=== PATIENT | male | born 1935 | race African-American/Black ===

== ENCOUNTER 2017-12-05 18:35 | Inpatient (IN) ==
[2017-12-05] MEDS ORDERED: ACETAMINOPHEN 325 MG TABLET PO PRN ×2 (22:31→22:57)
[2017-12-05] MEDS ORDERED: ONDANSETRON 4 MG/2 ML VIAL IV PRN (22:57)
[2017-12-05] MEDS ORDERED: ALBUTEROL/IPRATROPIUM 3 ML NEB RESP TX PRN (22:57)
[2017-12-05] MEDS ORDERED: SODIUM CHLORIDE 0.9% 500 ML IV ONE ×2 (22:57)
[2017-12-05] MEDS ORDERED: NOREPINEPHRINE 8 MG in SODIUM CHLORIDE 0.9% 242 ML IV SCH (22:57)
[2017-12-06] MEDS: CEFEPIME 1,000 MG in SYRINGE 1 EACH IV SCH ×4 (00:08→22:38)
[2017-12-06] MEDS: SODIUM CHLORIDE 0.9% 1,000 ML IV SCH ×2 (00:08→14:00)
[2017-12-06] MEDS: PANTOPRAZOLE 40 MG VIAL IV SCH ×2 (00:09→22:43)
[2017-12-06 01:14] LABS: INR 1.2
[2017-12-06 01:23] LABS: Eosinophils % 0.6 % (0.00-10.9); Hemoglobin 7.6 GM/DL (14.0-18.0); Immature Granulocytes % 3.2 %; Immature Granulocytes Absolute 0.05 #; Lymphocytes # 0.3 10*3/uL (1.4-4.0); Lymphocytes % 21.2 % (21.2-54.2); Mean Corpuscular HGB Conc 34.5 GM/DL (32-36); Mean Corpuscular Hemoglobin 35 PG (27-34); Mean Corpuscular Volume 101.4 FL (87-102); Monocytes # 0.5 10*3/uL (0.11-0.8); Monocytes % 30.1 % (1.7-12.7); NRBC # 0.09 10*3/uL; Neutrophils # 0.7 10*3/uL (1.4-7.4); Neutrophils % 44.9 % (38.7-73.9); Platelet Count 51 T/CUMM (130-400); Red Blood Count 2.17 MC/CUMM (3.8-5.5); Red Cell Distribution Width 17.8 % (9.3-17.3); White Blood Count 1.6 T/CUMM (4-12)
[2017-12-06 01:32] LABS: Alanine Aminotransferase 19 U/L (16-61); Albumin 1.9 G/DL (3.4-5.0); Alkaline Phosphatase 32 U/L (45-117); Aspartate Amino Transferase 35 U/L (0-37); Blood Urea Nitrogen 25 MG/DL (7-18); Glucose 97 MG/DL (74-106); Magnesium 1.1 MG/DL (1.8-2.4); Osmolality,Calculated 291.7 MOS/KG (273-304); Potassium 3.5 MMOL/L (3.5-5.1); Sodium 145 MMOL/L (136-145); Total Protein 4.7 G/DL (6.4-8.3)
[2017-12-06 01:48] LABS: Lactic Acid 3.3 MMOL/L (0.4-2.0)
[2017-12-06] MEDS: ALBUTEROL/IPRATROPIUM 3 ML NEB RESP TX SCH ×4 (02:00→19:51)
[2017-12-06 03:41] LABS: Band Neutrophils 10 % (0-10); Eosinophils 3 % (0-10); Lymphocytes 30 % (20-55); Nucleated Red Blood Cells 1 (0-5); Segmented Neutrophils 33 % (50-85); Total Cells Counted 99
[2017-12-06 03:42] LABS: Platelet Estimate Decreased; Tear Drop Cells Slight
[2017-12-06 03:44] LABS: Microcytosis 1+
[2017-12-06 07:02] LABS: Lactic Acid 3.3 MMOL/L (0.4-2.0)
[2017-12-06] MEDS ORDERED: SODIUM CHLORIDE 0.9% 1,000 ML IV PRN (08:51)
[2017-12-06] MEDS: POTASSIUM CHLORIDE 20 MEQ TABLET PO SCH (09:11)
[2017-12-06] MEDS: DOCUSATE SODIUM 100 MG CAPSULE PO SCH ×2 (09:11→21:03)
[2017-12-06] MEDS: DILTIAZEM CD 120 MG CAPSULE PO SCH (09:11)
[2017-12-06] MEDS: FILGRASTIM-SNDZ 300 MCG/0.5 ML SYRINGE SUBCUT SCH (09:12)
[2017-12-06 10:18] LABS: Lactic Acid 4.2 MMOL/L (0.4-2.0)
[2017-12-07] MEDS: ALBUTEROL/IPRATROPIUM 3 ML NEB RESP TX SCH ×4 (02:16→19:19)
[2017-12-07 05:32] LABS: Eosinophils # 0.1 10*3/uL (0.0-0.87); Hematocrit 26.3 VOL% (42.0-52.0); Hemoglobin 9.1 GM/DL (14.0-18.0); Immature Granulocytes % 0.6 %; Immature Granulocytes Absolute 0.01 #; Lymphocytes # 0.3 10*3/uL (1.4-4.0); Lymphocytes % 16.6 % (21.2-54.2); Mean Corpuscular HGB Conc 34.6 GM/DL (32-36); Mean Corpuscular Hemoglobin 33 PG (27-34); Mean Corpuscular Volume 96.3 FL (87-102); Monocytes # 0.3 10*3/uL (0.11-0.8); Monocytes % 17.7 % (1.7-12.7); NRBC # 0.03 10*3/uL; Neutrophils # 1.1 10*3/uL (1.4-7.4); Neutrophils % 60.1 % (38.7-73.9); Platelet Count 42 T/CUMM (130-400); Red Blood Count 2.73 MC/CUMM (3.8-5.5); White Blood Count 1.8 T/CUMM (4-12)
[2017-12-07 05:56] LABS: Calcium 7.2 MG/DL (8.5-10.1); Potassium 3.3 MMOL/L (3.5-5.1)
[2017-12-07 06:12] LABS: Anisocytosis 1+; Band Neutrophils 3 % (0-10); Eosinophils 2 % (0-10); Hypochromasia 1+; Lymphocytes 18 % (20-55); Microcytosis 1+; Myelocytes 1 %; Nucleated Red Blood Cells 4 (0-5); Segmented Neutrophils 58 % (50-85); Total Cells Counted 100
[2017-12-07 06:13] LABS: Ovalocytes Slight; Platelet Estimate Decreased; Tear Drop Cells Slight
[2017-12-07] MEDS: CEFEPIME 1,000 MG in SYRINGE 1 EACH IV SCH ×2 (06:29→18:13)
[2017-12-07] MEDS: SODIUM CHLORIDE 0.9% 1,000 ML IV SCH (09:09)
[2017-12-07] MEDS: DILTIAZEM CD 120 MG CAPSULE PO SCH (09:48)
[2017-12-07] MEDS: DOCUSATE SODIUM 100 MG CAPSULE PO SCH ×2 (09:48→22:11)
[2017-12-07] MEDS: POTASSIUM CHLORIDE 20 MEQ TABLET PO SCH (09:49)
[2017-12-07] MEDS: FILGRASTIM-SNDZ 300 MCG/0.5 ML SYRINGE SUBCUT SCH (09:50)
[2017-12-07] MEDS ORDERED: POTASSIUM CHLORIDE 20 MEQ TABLET PO PRN (14:29)
[2017-12-07] MEDS ORDERED: MAGNESIUM SULF RIDER 4 GM in PREMIX 1 EACH IV ONE (14:43)
[2017-12-07 17:16] LABS: Apearance,Urine CLEAR (Clear); Bacteria,Urine Occasional /HPF (Few); Bilirubin,Urine Negative (Negative); Blood, Urine Moderate mg/dL (Negative); Glucose,Urine (UA) Negative (Negative); Ketones,Urine Negative (Negative); Mucus,Urine Occasional /LPF (Occasional); Nitrite,Urine Negative (Negative); Protein,Urine Negative; RBC,Urine 64 /HPF (0-4); Squamous Epithelial Cell,Urine Occasional /HPF (0-10); Urine Color Yellow (Yellow); Urine Specific Gravity 1.009 (1.001-1.035); Urine Urobilinogen < 2.0 EU/DL (0.2-1.0); WBC,Urine 3 /HPF (0-6)
[2017-12-07] MEDS: PANTOPRAZOLE 40 MG VIAL IV SCH (22:12)
[2017-12-08] MEDS: ALBUTEROL/IPRATROPIUM 3 ML NEB RESP TX SCH ×4 (01:20→19:20)
[2017-12-08] MEDS: CEFEPIME 1,000 MG in SYRINGE 1 EACH IV SCH ×3 (02:58→22:18)
[2017-12-08] MEDS: SODIUM CHLORIDE 0.9% 1,000 ML IV SCH ×2 (02:58→16:00)
[2017-12-08 03:14] LABS: Basophils % 0.5 % (0.0-0.8); Eosinophils # 0.2 10*3/uL (0.0-0.87); Eosinophils % 7.7 % (0.00-10.9); Hematocrit 28.6 VOL% (42.0-52.0); Hemoglobin 9.7 GM/DL (14.0-18.0); Immature Granulocytes % 10.6 %; Immature Granulocytes Absolute 0.22 #; Lymphocytes # 0.4 10*3/uL (1.4-4.0); Lymphocytes % 18.8 % (21.2-54.2); Mean Corpuscular HGB Conc 33.9 GM/DL (32-36); Mean Corpuscular Hemoglobin 33 PG (27-34); Mean Corpuscular Volume 97.6 FL (87-102); Monocytes # 0.3 10*3/uL (0.11-0.8); NRBC # 0.04 10*3/uL; Neutrophils % 49.4 % (38.7-73.9); Red Blood Count 2.93 MC/CUMM (3.8-5.5); Red Cell Distribution Width 18.8 % (9.3-17.3); White Blood Count 2.1 T/CUMM (4-12)
[2017-12-08 03:22] LABS: Platelet Count 36 T/CUMM (130-400)
[2017-12-08 03:38] LABS: Albumin 1.8 G/DL (3.4-5.0); Calcium 7.1 MG/DL (8.5-10.1); Magnesium 2.4 MG/DL (1.8-2.4); Osmolality,Calculated 287.8 MOS/KG (273-304); Potassium 3.5 MMOL/L (3.5-5.1)
[2017-12-08 05:05] LABS: Eosinophils 2 % (0-10); Lymphocytes 20 % (20-55); Metamyelocytes 2 %; Myelocytes 4 %; Nucleated Red Blood Cells 1 (0-5); Segmented Neutrophils 62 % (50-85)
[2017-12-08 05:08] LABS: Ovalocytes 1+; Platelet Estimate Decreased; Total Cells Counted 100
[2017-12-08] MEDS: DOCUSATE SODIUM 100 MG CAPSULE PO SCH ×2 (09:44→22:20)
[2017-12-08] MEDS: DILTIAZEM CD 120 MG CAPSULE PO SCH (09:44)
[2017-12-08] MEDS: POTASSIUM CHLORIDE 20 MEQ TABLET PO SCH (09:45)
[2017-12-08] MEDS: FILGRASTIM-SNDZ 300 MCG/0.5 ML SYRINGE SUBCUT SCH (09:45)
[2017-12-08] MEDS ORDERED: SODIUM PHOSPHATE INJ 15 MMOL in SODIUM CHLORIDE 0.9% 250 ML IV ONE (13:49)
[2017-12-08] MEDS: PANTOPRAZOLE 40 MG VIAL IV SCH (22:47)
[2017-12-09] MEDS: ALBUTEROL/IPRATROPIUM 3 ML NEB RESP TX SCH ×4 (00:26→20:46)
[2017-12-09] MEDS: traZODone 50 MG TABLET PO PRN ×2 (01:53→21:35)
[2017-12-09] MEDS: CEFEPIME 1,000 MG in SYRINGE 1 EACH IV SCH ×3 (02:06→18:30)
[2017-12-09] MEDS: DOCUSATE SODIUM 100 MG CAPSULE PO SCH ×2 (09:26→21:35)
[2017-12-09] MEDS: DILTIAZEM CD 120 MG CAPSULE PO SCH (09:26)
[2017-12-09] MEDS: FILGRASTIM-SNDZ 300 MCG/0.5 ML SYRINGE SUBCUT SCH (09:27)
[2017-12-09] MEDS: POTASSIUM CHLORIDE 20 MEQ TABLET PO SCH (09:27)
[2017-12-09] MEDS: SODIUM CHLORIDE 0.9% 1,000 ML IV SCH ×2 (09:29→23:01)
[2017-12-09] MEDS: PANTOPRAZOLE 40 MG VIAL IV SCH (22:04)
[2017-12-10] MEDS: ALBUTEROL/IPRATROPIUM 3 ML NEB RESP TX SCH ×2 (00:25→08:07)
[2017-12-10] MEDS: CEFEPIME 1,000 MG in SYRINGE 1 EACH IV SCH ×2 (03:18→10:33)
[2017-12-10 09:36] LABS: Basophils % 0.6 % (0.0-0.8); Eosinophils # 0.2 10*3/uL (0.0-0.87); Eosinophils % 5.8 % (0.00-10.9); Hematocrit 29.1 VOL% (42.0-52.0); Hemoglobin 9.7 GM/DL (14.0-18.0); Immature Granulocytes % 7.7 %; Immature Granulocytes Absolute 0.25 #; Lymphocytes # 0.7 10*3/uL (1.4-4.0); Lymphocytes % 20.2 % (21.2-54.2); Mean Corpuscular HGB Conc 33.3 GM/DL (32-36); Mean Corpuscular Hemoglobin 33 PG (27-34); Mean Corpuscular Volume 99.3 FL (87-102); Monocytes # 0.5 10*3/uL (0.11-0.8); Neutrophils # 1.7 10*3/uL (1.4-7.4); Neutrophils % 50.7 % (38.7-73.9); Platelet Count 49 T/CUMM (130-400); Red Blood Count 2.93 MC/CUMM (3.8-5.5); Red Cell Distribution Width 18.6 % (9.3-17.3); White Blood Count 3.3 T/CUMM (4-12)
[2017-12-10 09:53] VITALS: BP 136/81
[2017-12-10 10:04] LABS: Band Neutrophils 6 % (0-10); Eosinophils 6 % (0-10); Giant Platelets Few; Hypochromasia 1+; Lymphocytes 22 % (20-55); Microcytosis Slight; Ovalocytes Slight; Platelet Estimate Decreased; Segmented Neutrophils 44 % (50-85); Total Cells Counted 100
[2017-12-10] MEDS: SODIUM CHLORIDE 0.9% 1,000 ML IV SCH (10:31)
[2017-12-10] MEDS: FILGRASTIM-SNDZ 300 MCG/0.5 ML SYRINGE SUBCUT SCH (10:33)
[2017-12-10] MEDS: DILTIAZEM CD 120 MG CAPSULE PO SCH (10:33)
[2017-12-10] MEDS: POTASSIUM CHLORIDE 20 MEQ TABLET PO SCH (10:34)
[2017-12-10] MEDS: DOCUSATE SODIUM 100 MG CAPSULE PO SCH (11:18)
== END 2017-12-10 13:50 | disposition swing bed (61) | DRG 871 ==
LOC: SUATTDRO 21:22 → N.CC 21:22 → N.4E 12-06 10:23
PROVIDERS: ADMIT Internal Medicine; ATTEND Pediatrics

== ENCOUNTER 2018-05-31 18:20 | Inpatient (IN) ==
[2018-06-01] MEDS ORDERED: DILTIAZEM 50 MG/10 ML VIAL IV ONE (03:17)
[2018-06-01] MEDS ORDERED: DILTIAZEM 25 MG/5 ML VIAL IV ONE (03:19)
[2018-06-01 04:44] LABS: Basophils % 0.2 % (0.0-0.8); Eosinophils % 0.3 % (0.00-10.9); Hemoglobin 10.6 GM/DL (14.0-18.0); Immature Granulocytes % 5.5 %; Immature Granulocytes Absolute 0.32 #; Lymphocytes # 0.9 10*3/uL (1.4-4.0); Lymphocytes % 15.9 % (21.2-54.2); Mean Corpuscular HGB Conc 32.1 GM/DL (32-36); Mean Corpuscular Hemoglobin 30 PG (27-34); Monocytes # 0.1 10*3/uL (0.11-0.8); Monocytes % 2.4 % (1.7-12.7); NRBC # 0.07 10*3/uL; Neutrophils # 4.4 10*3/uL (1.4-7.4); Neutrophils % 75.7 % (38.7-73.9); Platelet Count 84 T/CUMM (130-400); Red Blood Count 3.51 MC/CUMM (3.8-5.5); Red Cell Distribution Width 19.2 % (9.3-17.3); White Blood Count 5.8 T/CUMM (4-12)
[2018-06-01 04:47] LABS: INR 1.1; PT Patient Result 11.6 SECS
[2018-06-01 05:01] LABS: Amorphous Crystals,Urine Occasional /HPF (Few); Apearance,Urine CLOUDY (Clear); Bacteria,Urine Few /HPF (Few); Bilirubin,Urine Negative (Negative); Blood, Urine Moderate mg/dL (Negative); Glucose,Urine (UA) Negative (Negative); Ketones,Urine Negative (Negative); Mucus,Urine Occasional /LPF (Occasional); Nitrite,Urine Positive (Negative); Protein,Urine Negative; RBC,Urine 2 /HPF (0-4); Squamous Epithelial Cell,Urine Occasional /HPF (0-10); Urine Color Yellow (Yellow); Urine Specific Gravity 1.009 (1.001-1.035); Urine Urobilinogen < 2.0 EU/DL (0.2-1.0); WBC,Urine 76 /HPF (0-6)
[2018-06-01 05:08] LABS: Calcium 8.2 MG/DL (8.5-10.1); Osmolality,Calculated 275.7 MOS/KG (273-304)
[2018-06-01 05:11] LABS: Band Neutrophils 1 % (0-10); Lymphocytes 22 % (20-55); Macrocytosis 2+; Nucleated Red Blood Cells 2 (0-5); Platelet Estimate Decreased; Segmented Neutrophils 74 % (50-85); Total Cells Counted 100
[2018-06-01] MEDS ORDERED: DILTIAZEM INJ 100 MG in SODIUM CHLORIDE 0.9% 100 ML IV SCH (07:30)
[2018-06-01] MEDS ORDERED: SODIUM CHLORIDE 0.9% 1,000 ML IV SCH (08:00)
[2018-06-01] MEDS: DILTIAZEM CD 120 MG CAPSULE PO SCH (12:34)
[2018-06-01] MEDS: ASCORBIC ACID 500 MG TABLET PO SCH ×2 (12:36→20:59)
[2018-06-01] MEDS: APIXABAN 5 MG TABLET PO SCH (21:00)
[2018-06-01] MEDS: cefTRIAXone 2,000 MG in SYRINGE 1 EACH IV SCH (21:00)
[2018-06-02] MEDS: DILTIAZEM CD 120 MG CAPSULE PO SCH (08:40)
[2018-06-02] MEDS: ASCORBIC ACID 500 MG TABLET PO SCH ×2 (08:41→20:36)
[2018-06-02] MEDS: APIXABAN 5 MG TABLET PO SCH ×2 (08:41→20:36)
[2018-06-02] MEDS: ALUMINUM/MAGNES/SIMETH MAX STR 30 ML UDCUP PO PRN (18:23)
[2018-06-02] MEDS: cefTRIAXone 2,000 MG in SYRINGE 1 EACH IV SCH (20:36)
[2018-06-03 05:29] LABS: Basophils % 0.2 % (0.0-0.8); Eosinophils % 0.2 % (0.00-10.9); Hematocrit 30.7 VOL% (42.0-52.0); Hemoglobin 10.3 GM/DL (14.0-18.0); Immature Granulocytes % 1.9 %; Immature Granulocytes Absolute 0.17 #; Lymphocytes # 0.7 10*3/uL (1.4-4.0); Lymphocytes % 7.7 % (21.2-54.2); Mean Corpuscular HGB Conc 33.6 GM/DL (32-36); Mean Corpuscular Hemoglobin 30 PG (27-34); Mean Corpuscular Volume 90.6 FL (87-102); Monocytes # 0.3 10*3/uL (0.11-0.8); Monocytes % 2.9 % (1.7-12.7); Neutrophils # 7.7 10*3/uL (1.4-7.4); Neutrophils % 87.1 % (38.7-73.9); Platelet Count 119 T/CUMM (130-400); Red Blood Count 3.39 MC/CUMM (3.8-5.5); Red Cell Distribution Width 19.5 % (9.3-17.3); White Blood Count 8.8 T/CUMM (4-12)
[2018-06-03 05:37] LABS: INR 1.1; PT Patient Result 11.9 SECS
[2018-06-03 05:51] LABS: Albumin 1.9 G/DL (3.4-5.0); Bilirubin,Total 0.9 MG/DL (0.2-1.0); Calcium 8.2 MG/DL (8.5-10.1); Osmolality,Calculated 282.7 MOS/KG (273-304); Potassium 3.6 MMOL/L (3.5-5.1); Total Protein 5.7 G/DL (6.4-8.3)
[2018-06-03 05:55] LABS: Platelet Estimate Adequate
[2018-06-03 05:56] LABS: Anisocytosis 1+; Poikilocytosis 1+
[2018-06-03] MEDS: APIXABAN 5 MG TABLET PO SCH ×2 (08:58→22:34)
[2018-06-03] MEDS: POTASSIUM CHLORIDE 20 MEQ TABLET PO SCH (08:58)
[2018-06-03] MEDS: ASCORBIC ACID 500 MG TABLET PO SCH ×2 (08:58→22:34)
[2018-06-03] MEDS: DILTIAZEM CD 120 MG CAPSULE PO SCH (08:59)
[2018-06-03] MEDS ORDERED: DILTIAZEM CD 120 MG CAPSULE PO ONE (10:17)
[2018-06-03] MEDS: DILTIAZEM INJ 100 MG in SODIUM CHLORIDE 0.9% 100 ML IV SCH (13:07)
[2018-06-04] MEDS: ERTAPENEM 1,000 MG in SODIUM CHLORIDE 0.9% 100 ML IV SCH ×2 (01:12→11:30)
[2018-06-04] MEDS: DILTIAZEM INJ 100 MG in SODIUM CHLORIDE 0.9% 100 ML IV SCH ×2 (01:23→02:12)
[2018-06-04] MEDS ORDERED: AMIODARONE INJ 150 MG in DEXTROSE 5% 100 ML IV ONE (08:07)
[2018-06-04] MEDS ORDERED: AMIODARONE INJ 450 MG in DEXTROSE 5% 241 ML IV SCH (08:30)
[2018-06-04] MEDS ORDERED: DILTIAZEM CD 240 MG CAPSULE PO SCH (09:00)
[2018-06-04] MEDS: APIXABAN 5 MG TABLET PO SCH ×2 (09:48→09:49)
[2018-06-04] MEDS: ASCORBIC ACID 500 MG TABLET PO SCH ×2 (09:48→21:56)
[2018-06-04] MEDS: POTASSIUM CHLORIDE 20 MEQ TABLET PO SCH (09:48)
[2018-06-04] MEDS ORDERED: fentaNYL 12 MCG/HR PATCH TRANSDERM SCH (16:30)
[2018-06-04] MEDS: AMIODARONE INJ 450 MG in DEXTROSE 5% 241 ML IV SCH (17:48)
[2018-06-05 05:52] LABS: Basophils % 0.2 % (0.0-0.8); Eosinophils # 0.1 10*3/uL (0.0-0.87); Eosinophils % 0.7 % (0.00-10.9); Hematocrit 26.4 VOL% (42.0-52.0); Hemoglobin 8.7 GM/DL (14.0-18.0); Immature Granulocytes % 2.3 %; Immature Granulocytes Absolute 0.19 #; Lymphocytes # 0.6 10*3/uL (1.4-4.0); Lymphocytes % 6.7 % (21.2-54.2); Mean Corpuscular Hemoglobin 30 PG (27-34); Mean Platelet Volume 12.3 FL (9.6-12.0); Monocytes # 0.3 10*3/uL (0.11-0.8); Monocytes % 3.3 % (1.7-12.7); NRBC # 0.05 10*3/uL; Neutrophils # 7.1 10*3/uL (1.4-7.4); Neutrophils % 86.8 % (38.7-73.9); Platelet Count 136 T/CUMM (130-400); Red Cell Distribution Width 19.9 % (9.3-17.3); White Blood Count 8.2 T/CUMM (4-12)
[2018-06-05 06:11] LABS: Calcium 7.8 MG/DL (8.5-10.1); Osmolality,Calculated 282.7 MOS/KG (273-304); Potassium 4.3 MMOL/L (3.5-5.1)
[2018-06-05 06:15] LABS: Band Neutrophils 3 % (0-10); Eosinophils 1 % (0-10); Hypochromasia 1+; Lymphocytes 4 % (20-55); Nucleated Red Blood Cells 1 (0-5); Segmented Neutrophils 89 % (50-85); Total Cells Counted 100
[2018-06-05 06:16] LABS: Microcytosis 1+; Ovalocytes Few; Polychromasia Slight; Tear Drop Cells Slight
[2018-06-05] MEDS: ASCORBIC ACID 500 MG TABLET PO SCH ×2 (08:21→21:11)
[2018-06-05] MEDS: APIXABAN 5 MG TABLET PO SCH (08:21)
[2018-06-05] MEDS: ERTAPENEM 1,000 MG in SODIUM CHLORIDE 0.9% 100 ML IV SCH (08:21)
[2018-06-05] MEDS: POTASSIUM CHLORIDE 20 MEQ TABLET PO SCH (08:21)
[2018-06-05] MEDS: AMIODARONE INJ 450 MG in DEXTROSE 5% 241 ML IV SCH (09:34)
[2018-06-05] MEDS ORDERED: FUROSEMIDE 40 MG/4 ML VIAL IV ONE (11:19)
[2018-06-05] MEDS: DEXTROSE 5% NACL 0.45% 1,000 ML IV SCH (11:36)
[2018-06-05] MEDS: AMIODARONE 200 MG TABLET PO SCH ×2 (11:36→21:12)
[2018-06-05 17:12] LABS: ABG Base Excess -1.4 MMOL/L (-2.5-2.5); ABG HCO3 20.4 MMOL/L (20-26); ABG Oxygen Saturation 86.6 % (95-100); ABG PCO2 25.3 MM HG (35-48); ABG PH 7.525 (7.35-7.45); ABG PO2 57.2 MM HG (80-95); ABG TCO2 21.2 MMOL/L (23-27)
[2018-06-05] MEDS: ALBUTEROL/IPRATROPIUM 3 ML NEB RESP TX SCH (20:38)
[2018-06-05] MEDS: MEROPENEM 1,000 MG in SYRINGE 1 EACH IV SCH (21:11)
[2018-06-05] MEDS: CLINDAMYCIN INJ 600 MG in PREMIX 1 EACH IV SCH (21:12)
[2018-06-06] MEDS: ALBUTEROL/IPRATROPIUM 3 ML NEB RESP TX SCH ×4 (00:47→19:10)
[2018-06-06] MEDS: CLINDAMYCIN INJ 600 MG in PREMIX 1 EACH IV SCH ×2 (04:01→11:49)
[2018-06-06 05:54] LABS: Basophils % 0.3 % (0.0-0.8); Eosinophils % 0.6 % (0.00-10.9); Hematocrit 25.7 VOL% (42.0-52.0); Hemoglobin 8.2 GM/DL (14.0-18.0); Immature Granulocytes % 6.7 %; Immature Granulocytes Absolute 0.44 #; Lymphocytes # 0.7 10*3/uL (1.4-4.0); Lymphocytes % 10.3 % (21.2-54.2); Mean Corpuscular HGB Conc 31.9 GM/DL (32-36); Mean Corpuscular Hemoglobin 30 PG (27-34); Mean Corpuscular Volume 93.8 FL (87-102); Mean Platelet Volume 12.6 FL (9.6-12.0); Monocytes # 0.3 10*3/uL (0.11-0.8); Monocytes % 3.8 % (1.7-12.7); Neutrophils # 5.2 10*3/uL (1.4-7.4); Neutrophils % 78.3 % (38.7-73.9); Platelet Count 163 T/CUMM (130-400); Red Blood Count 2.74 MC/CUMM (3.8-5.5); Red Cell Distribution Width 20.4 % (9.3-17.3); White Blood Count 6.6 T/CUMM (4-12)
[2018-06-06 06:10] LABS: Calcium 7.6 MG/DL (8.5-10.1); Potassium 4.4 MMOL/L (3.5-5.1)
[2018-06-06 06:20] LABS: Band Neutrophils 3 % (0-10); Eosinophils 1 % (0-10); Hypochromasia 1+; Lymphocytes 14 % (20-55); Microcytosis 1+; Nucleated Red Blood Cells 3 (0-5); Ovalocytes Slight; Platelet Estimate Normal; Segmented Neutrophils 77 % (50-85); Total Cells Counted 100
[2018-06-06] MEDS: AMIODARONE 200 MG TABLET PO SCH ×2 (08:29→21:17)
[2018-06-06] MEDS: POTASSIUM CHLORIDE 20 MEQ TABLET PO SCH (08:29)
[2018-06-06] MEDS: MEROPENEM 1,000 MG in SYRINGE 1 EACH IV SCH ×2 (08:29→21:17)
[2018-06-06] MEDS: ASCORBIC ACID 500 MG TABLET PO SCH ×2 (08:29→21:17)
[2018-06-06] MEDS: DORNASE ALFA 2.5 MG/2.5 ML VIAL RESP TX SCH ×2 (09:05→19:15)
[2018-06-06] MEDS ORDERED: ALBUTEROL/IPRATROPIUM 3 ML NEB RESP TX PRN (10:25)
[2018-06-06] MEDS: MONTELUKAST 10 MG TABLET PO SCH (11:47)
[2018-06-06 12:31] LABS: ABG Base Excess -3.3 MMOL/L (-2.5-2.5); ABG HCO3 21.5 MMOL/L (20-26); ABG Oxygen Saturation 86.2 % (95-100); ABG PCO2 25.3 MM HG (35-48); ABG PH 7.489 (7.35-7.45); ABG PO2 53.6 MM HG (80-95); ABG TCO2 17.9 MMOL/L (23-27)
[2018-06-06 15:12] LABS: ABG Base Excess -8.2 MMOL/L (-2.5-2.5); ABG HCO3 17.7 MMOL/L (20-26); ABG Oxygen Saturation 89.7 % (95-100); ABG PCO2 22.3 MM HG (35-48); ABG PH 7.431 (7.35-7.45); ABG TCO2 13.6 MMOL/L (23-27); Allen Test Positive
[2018-06-06 16:03] LABS: Apearance,Urine CLEAR (Clear); Bacteria,Urine Occasional /HPF (Few); Bilirubin,Urine Negative (Negative); Blood, Urine Negative (Negative); Glucose,Urine (UA) Negative (Negative); Hyaline Casts,Urine 1 /LPF (0-3); Ketones,Urine 5 mg/dL (Negative); Mucus,Urine Occasional /LPF (Occasional); Nitrite,Urine Negative (Negative); Protein,Urine Negative; RBC,Urine <1 /HPF (0-4); Squamous Epithelial Cell,Urine Occasional /HPF (0-10); Urine Color Yellow (Yellow); Urine Specific Gravity 1.016 (1.001-1.035); Urine Urobilinogen < 2.0 EU/DL (0.2-1.0); WBC,Urine 6 /HPF (0-6)
[2018-06-07] MEDS: DEXTROSE 5% NACL 0.45% 1,000 ML IV SCH ×4 (02:01→19:26)
[2018-06-07] MEDS: ALBUTEROL/IPRATROPIUM 3 ML NEB RESP TX SCH ×4 (02:04→19:18)
[2018-06-07 04:16] LABS: ABG Base Excess -2.8 MMOL/L (-2.5-2.5); ABG HCO3 22.1 MMOL/L (20-26); ABG Oxygen Saturation 96.6 % (95-100); ABG PCO2 26.8 MM HG (35-48); ABG PO2 83.6 MM HG (80-95); ABG TCO2 18.6 MMOL/L (23-27); Pt O2 Delivery Device Other
[2018-06-07 04:29] LABS: Basophils % 0.1 % (0.0-0.8); Eosinophils # 0.1 10*3/uL (0.0-0.87); Hematocrit 24.3 VOL% (42.0-52.0); Hemoglobin 7.8 GM/DL (14.0-18.0); Immature Granulocytes % 6.8 %; Immature Granulocytes Absolute 0.49 #; Lymphocytes # 0.5 10*3/uL (1.4-4.0); Lymphocytes % 7.3 % (21.2-54.2); Mean Corpuscular HGB Conc 32.1 GM/DL (32-36); Mean Corpuscular Hemoglobin 30 PG (27-34); Mean Corpuscular Volume 93.1 FL (87-102); Mean Platelet Volume 13.5 FL (9.6-12.0); Monocytes # 0.1 10*3/uL (0.11-0.8); Monocytes % 1.7 % (1.7-12.7); NRBC # 0.08 10*3/uL; Neutrophils % 83.1 % (38.7-73.9); Platelet Count 163 T/CUMM (130-400); Red Blood Count 2.61 MC/CUMM (3.8-5.5); Red Cell Distribution Width 20.8 % (9.3-17.3); White Blood Count 7.2 T/CUMM (4-12)
[2018-06-07 04:37] LABS: Calcium 7.6 MG/DL (8.5-10.1); Osmolality,Calculated 283.8 MOS/KG (273-304); Potassium 4.4 MMOL/L (3.5-5.1)
[2018-06-07 04:42] LABS: PT Patient Result 10.8 SECS; Partial Thromboplastin Time 39.2 SECS (0-40)
[2018-06-07 05:45] LABS: Band Neutrophils 7 % (0-10); Lymphocytes 9 % (20-55); Platelet Estimate Normal; Segmented Neutrophils 82 % (50-85); Total Cells Counted 100
[2018-06-07] MEDS: DORNASE ALFA 2.5 MG/2.5 ML VIAL RESP TX SCH ×2 (07:32→19:18)
[2018-06-07] MEDS: AMIODARONE 200 MG TABLET PO SCH ×2 (08:20→21:41)
[2018-06-07] MEDS: MEROPENEM 1,000 MG in SYRINGE 1 EACH IV SCH ×2 (08:28→21:41)
[2018-06-07] MEDS ORDERED: LIDOCAINE 1% 20 ML VIAL MISC INJ ONE (09:00)
[2018-06-07] MEDS ORDERED: APIXABAN 5 MG TABLET PO SCH (09:00)
[2018-06-07] MEDS ORDERED: LIDOCAINE 2% VISCOUS 100 ML BOTTLE SWISH/SPIT ONE (09:00)
[2018-06-07] MEDS ORDERED: LIDOCAINE 2% 20 ML VIAL RESP TX ONE (09:00)
[2018-06-07] MEDS ORDERED: SODIUM CHLORIDE 0.9% 1,000 ML IV PRN (09:33)
[2018-06-07] MEDS ORDERED: DIGOXIN 0.5 MG/2 ML AMP IV ONE (10:31)
[2018-06-07] MEDS ORDERED: SKIN HEALING OINT (AQUAPHOR) 50 GM TUBE TOP PRN (10:35)
[2018-06-07] MEDS ORDERED: traZODone 50 MG TABLET PO PRN (12:27)
[2018-06-07] MEDS: MONTELUKAST 10 MG TABLET PO SCH (16:46)
[2018-06-07] MEDS: ASCORBIC ACID 500 MG TABLET PO SCH ×2 (16:46→21:41)
[2018-06-07] MEDS ORDERED: SODIUM CHLORIDE 0.9% 500 ML IV ONE (16:52)
[2018-06-07] MEDS ORDERED: DILTIAZEM 60 MG TABLET PO ONE (17:02)
[2018-06-07] MEDS: DILTIAZEM CD 120 MG CAPSULE PO SCH (17:37)
[2018-06-07] MEDS: POTASSIUM CHLORIDE 20 MEQ TABLET PO SCH (17:37)
[2018-06-07] MEDS ORDERED: DOCUSATE SODIUM 100 MG CAPSULE PO SCH (21:00)
[2018-06-07] MEDS: ACYCLOVIR 200 MG CAPSULE PO SCH (21:41)
[2018-06-08] MEDS: ALBUTEROL/IPRATROPIUM 3 ML NEB RESP TX SCH ×4 (00:55→18:58)
[2018-06-08 03:25] LABS: ABG Base Excess -3.2 MMOL/L (-2.5-2.5); ABG HCO3 21.7 MMOL/L (20-26); ABG Oxygen Saturation 95.8 % (95-100); ABG PCO2 27.7 MM HG (35-48); ABG PH 7.464 (7.35-7.45); ABG PO2 80.3 MM HG (80-95); ABG TCO2 18.7 MMOL/L (23-27); Allen Test Positive
[2018-06-08 03:39] LABS: Basophils % 0.1 % (0.0-0.8); Eosinophils # 0.1 10*3/uL (0.0-0.87); Eosinophils % 0.9 % (0.00-10.9); Hematocrit 24.8 VOL% (42.0-52.0); Hemoglobin 7.6 GM/DL (14.0-18.0); Immature Granulocytes % 7.8 %; Immature Granulocytes Absolute 0.54 #; Lymphocytes # 0.3 10*3/uL (1.4-4.0); Mean Corpuscular HGB Conc 30.6 GM/DL (32-36); Mean Corpuscular Hemoglobin 30 PG (27-34); Mean Corpuscular Volume 96.9 FL (87-102); Mean Platelet Volume 13.1 FL (9.6-12.0); Monocytes # 0.2 10*3/uL (0.11-0.8); Monocytes % 2.6 % (1.7-12.7); NRBC # 0.19 10*3/uL; Neutrophils # 5.9 10*3/uL (1.4-7.4); Neutrophils % 84.6 % (38.7-73.9); Platelet Count 152 T/CUMM (130-400); Red Blood Count 2.56 MC/CUMM (3.8-5.5); Red Cell Distribution Width 21.3 % (9.3-17.3)
[2018-06-08 04:23] LABS: Calcium 6.8 MG/DL (8.5-10.1); Osmolality,Calculated 280.8 MOS/KG (273-304); Potassium 4.3 MMOL/L (3.5-5.1)
[2018-06-08 05:05] LABS: Anisocytosis 2+; Band Neutrophils 28 % (0-10); Eosinophils 1 % (0-10); Lymphocytes 3 % (20-55); Nucleated Red Blood Cells 3 (0-5); Poikilocytosis 2+; Polychromasia 1+; Segmented Neutrophils 62 % (50-85); Total Cells Counted 100
[2018-06-08 05:06] LABS: Acanthocytes 1+
[2018-06-08] MEDS: DEXTROSE 5% NACL 0.45% 1,000 ML IV SCH ×2 (05:09→15:02)
[2018-06-08] MEDS: DORNASE ALFA 2.5 MG/2.5 ML VIAL RESP TX SCH ×2 (07:49→19:07)
[2018-06-08] MEDS: AMIODARONE 200 MG TABLET PO SCH ×2 (09:48→20:58)
[2018-06-08] MEDS: DILTIAZEM CD 120 MG CAPSULE PO SCH (09:54)
[2018-06-08] MEDS: MAGNESIUM OXIDE 400 MG TABLET PO SCH (10:01)
[2018-06-08] MEDS: MEROPENEM 1,000 MG in SYRINGE 1 EACH IV SCH ×2 (10:24→20:52)
[2018-06-08] MEDS: ACYCLOVIR 200 MG CAPSULE PO SCH ×2 (10:24→21:00)
[2018-06-08] MEDS: MONTELUKAST 10 MG TABLET PO SCH (10:31)
[2018-06-08] MEDS: POTASSIUM CHLORIDE 20 MEQ TABLET PO SCH (10:37)
[2018-06-08] MEDS: CLINDAMYCIN INJ 600 MG in PREMIX 1 EACH IV SCH ×2 (13:00→20:57)
[2018-06-08] MEDS: ASCORBIC ACID 500 MG TABLET PO SCH ×2 (15:02→21:01)
[2018-06-08] MEDS: ALUMINUM/MAGNES/SIMETH MAX STR 30 ML UDCUP PO PRN (17:08)
[2018-06-09 00:30] LABS: Hematocrit 31.7 VOL% (42.0-52.0)
[2018-06-09] MEDS: ALBUTEROL/IPRATROPIUM 3 ML NEB RESP TX SCH ×4 (00:36→19:14)
[2018-06-09 03:35] LABS: ABG Base Excess -3.2 MMOL/L (-2.5-2.5); ABG HCO3 19.1 MMOL/L (20-26); ABG Oxygen Saturation 96.8 % (95-100); ABG PCO2 25.8 MM HG (35-48); ABG PH 7.487 (7.35-7.45); ABG PO2 93.9 MM HG (80-95); ABG TCO2 19.9 MMOL/L (23-27)
[2018-06-09 04:04] LABS: Basophils % 0.3 % (0.0-0.8); Eosinophils % 0.5 % (0.00-10.9); Hematocrit 31.3 VOL% (42.0-52.0); Hemoglobin 10.2 GM/DL (14.0-18.0); Immature Granulocytes % 6.1 %; Immature Granulocytes Absolute 0.36 #; Lymphocytes # 0.3 10*3/uL (1.4-4.0); Lymphocytes % 4.6 % (21.2-54.2); Mean Corpuscular HGB Conc 32.6 GM/DL (32-36); Mean Corpuscular Hemoglobin 30 PG (27-34); Mean Corpuscular Volume 91.8 FL (87-102); Mean Platelet Volume 13.2 FL (9.6-12.0); Monocytes # 0.2 10*3/uL (0.11-0.8); Monocytes % 2.9 % (1.7-12.7); NRBC # 0.17 10*3/uL; Neutrophils % 85.6 % (38.7-73.9); Red Blood Count 3.41 MC/CUMM (3.8-5.5); Red Cell Distribution Width 18.6 % (9.3-17.3); White Blood Count 5.9 T/CUMM (4-12)
[2018-06-09 04:18] LABS: Platelet Count 107 T/CUMM (130-400)
[2018-06-09 04:31] LABS: Calcium 7.5 MG/DL (8.5-10.1); Osmolality,Calculated 282.7 MOS/KG (273-304); Potassium 4.7 MMOL/L (3.5-5.1)
[2018-06-09 05:02] LABS: Band Neutrophils 6 % (0-10); Eosinophils 2 % (0-10); Lymphocytes 7 % (20-55); Nucleated Red Blood Cells 3 (0-5); Segmented Neutrophils 83 % (50-85); Total Cells Counted 100
[2018-06-09 05:03] LABS: Hypochromasia Slight; Microcytosis 1+; Ovalocytes Slight; Polychromasia Slight
[2018-06-09 05:04] LABS: Platelet Estimate Adequate
[2018-06-09] MEDS: CLINDAMYCIN INJ 600 MG in PREMIX 1 EACH IV SCH ×3 (05:11→20:42)
[2018-06-09] MEDS: DORNASE ALFA 2.5 MG/2.5 ML VIAL RESP TX SCH ×2 (07:30→19:14)
[2018-06-09] MEDS: DEXTROSE 5% NACL 0.45% 1,000 ML IV SCH ×2 (07:48→17:16)
[2018-06-09] MEDS: ALUMINUM/MAGNES/SIMETH MAX STR 30 ML UDCUP PO PRN (08:38)
[2018-06-09] MEDS: AMIODARONE 200 MG TABLET PO SCH ×2 (08:45→20:38)
[2018-06-09] MEDS: ACYCLOVIR 200 MG CAPSULE PO SCH ×2 (08:47→20:35)
[2018-06-09] MEDS: MAGNESIUM OXIDE 400 MG TABLET PO SCH (08:49)
[2018-06-09] MEDS: ASCORBIC ACID 500 MG TABLET PO SCH ×2 (08:53→20:38)
[2018-06-09] MEDS: POTASSIUM CHLORIDE 20 MEQ TABLET PO SCH (08:59)
[2018-06-09] MEDS: MEROPENEM 1,000 MG in SYRINGE 1 EACH IV SCH ×2 (09:02→21:15)
[2018-06-09] MEDS: DILTIAZEM CD 120 MG CAPSULE PO SCH (09:05)
[2018-06-09] MEDS: MONTELUKAST 10 MG TABLET PO SCH (16:50)
[2018-06-10] MEDS: ALBUTEROL/IPRATROPIUM 3 ML NEB RESP TX SCH ×3 (01:03→12:36)
[2018-06-10] MEDS: ALUMINUM/MAGNES/SIMETH MAX STR 30 ML UDCUP PO PRN (03:31)
[2018-06-10 04:07] LABS: ABG Base Excess -3.2 MMOL/L (-2.5-2.5); ABG HCO3 19.4 MMOL/L (20-26); ABG Oxygen Saturation 93.4 % (95-100); ABG PCO2 26.6 MM HG (35-48); ABG PH 7.481 (7.35-7.45); ABG PO2 71.9 MM HG (80-95); ABG TCO2 20.2 MMOL/L (23-27); Allen Test Positive; Pt O2 Delivery Device Other
[2018-06-10 04:15] LABS: Basophils % 0.4 % (0.0-0.8); Eosinophils % 0.2 % (0.00-10.9); Hematocrit 28.1 VOL% (42.0-52.0); Hemoglobin 9.3 GM/DL (14.0-18.0); Immature Granulocytes % 7.7 %; Immature Granulocytes Absolute 0.44 #; Lymphocytes # 0.4 10*3/uL (1.4-4.0); Lymphocytes % 6.8 % (21.2-54.2); Mean Corpuscular HGB Conc 33.1 GM/DL (32-36); Mean Corpuscular Hemoglobin 30 PG (27-34); Mean Corpuscular Volume 91.8 FL (87-102); Monocytes # 0.1 10*3/uL (0.11-0.8); Monocytes % 2.3 % (1.7-12.7); NRBC # 0.03 10*3/uL; Neutrophils # 4.7 10*3/uL (1.4-7.4); Neutrophils % 82.6 % (38.7-73.9); Platelet Count 85 T/CUMM (130-400); Red Blood Count 3.06 MC/CUMM (3.8-5.5); Red Cell Distribution Width 18.6 % (9.3-17.3); White Blood Count 5.7 T/CUMM (4-12)
[2018-06-10 04:44] LABS: Calcium 7.4 MG/DL (8.5-10.1); Osmolality,Calculated 282.7 MOS/KG (273-304); Potassium 4.8 MMOL/L (3.5-5.1)
[2018-06-10] MEDS: CLINDAMYCIN INJ 600 MG in PREMIX 1 EACH IV SCH (04:50)
[2018-06-10 05:14] LABS: Band Neutrophils 4 % (0-10); Hypochromasia 1+; Lymphocytes 3 % (20-55); Microcytosis 1+; Ovalocytes Slight; Platelet Estimate Decreased; Segmented Neutrophils 92 % (50-85); Total Cells Counted 100
[2018-06-10] MEDS: DORNASE ALFA 2.5 MG/2.5 ML VIAL RESP TX SCH (07:28)
[2018-06-10] MEDS: AMIODARONE 200 MG TABLET PO SCH (08:53)
[2018-06-10] MEDS ORDERED: SODIUM CHLORIDE 0.9% 500 ML IV ONE (09:01)
[2018-06-10] MEDS: MEROPENEM 1,000 MG in SYRINGE 1 EACH IV SCH (09:12)
[2018-06-10] MEDS: DILTIAZEM CD 120 MG CAPSULE PO SCH (09:20)
[2018-06-10] MEDS: POTASSIUM CHLORIDE 20 MEQ TABLET PO SCH (09:20)
[2018-06-10] MEDS: MAGNESIUM OXIDE 400 MG TABLET PO SCH (09:20)
[2018-06-10] MEDS: MONTELUKAST 10 MG TABLET PO SCH (09:21)
[2018-06-10] MEDS: ACYCLOVIR 200 MG CAPSULE PO SCH (09:21)
[2018-06-10] MEDS: ASCORBIC ACID 500 MG TABLET PO SCH (09:21)
[2018-06-10 09:22] VITALS: BP 85/65
[2018-06-10] MEDS: DEXTROSE 5% NACL 0.45% 1,000 ML IV SCH (11:21)
[2018-06-10] MEDS ORDERED: AMPICILLIN/SULBACTAM 1,500 MG in SODIUM CHLORIDE 0.9% 100 ML IV SCH (12:00)
== END 2018-06-10 15:56 | DRG 299 ==
LOC: N.TELEN 20:05 → SUATTDRO 20:05 → INTOOBSV 20:05 → SUATTDRO 06-01 11:16 → N.ICU 06-06 15:02
PROVIDERS: ADMIT Internal Medicine; ATTEND Internal Medicine